=== PATIENT | female | born 1985 | race Caucasian/White ===

== ENCOUNTER 2023-10-25 01:01 | Inpatient (IN) ==
[2023-10-25] MEDS ORDERED: LIDOCAINE 1% LOCAL 20 ML VIAL INFIL PRN (01:44)
--- NOTE | 2023-10-25 01:46 | History & Physical Report ---
Date of Service October 25, 2023 Assessment & Plan (1) Normal labor: Plan patient presents in active labor. admit. fetus category one. desires epidural. then plan arom and anticipate . History of Present Illness Chief Complaint: contractions Primary Care Provider: Rosa Longo MD Patient is a 38yowf with iup at 40 1/7 who presents with painful contractions every 2 minutes. no lof/vb. WAs breech a few weeks ago with a successful version done. and Delivery Plans AMA *Weekly NST's @ 36wks. BREECH at 37 weeks--s/p successful ECV ? VSD on Anatomy * Echo (07/17/23 @ [facility] [place])--normal OB Labs: Blood Type B Positive 10/04/23 Antibody Screen NEGATIVE 10/04/23 Hemoglobin 11.1 g/dl (12.0-16.0) L 10/04/23 Hematocrit 32.2 % (37.0-47.0) L 10/04/23 Mean Corpuscular Volume 90.2 fL (80.0-100.0) 10/04/23 Platelet Count 246 K/uL (130-400) 10/04/23 Rubella IgG Antibody Immune (Immune) 06/06/23 Rapid Plasma Reagin Nonreactive (Nonreactive) 06/06/23 Hepatitis B Surface Antigen. NON-REACTIVE (NON-REACTIVE) 06/06/23 Hepatitis C Antibody (EIA) NON-REACTIVE (NON-REACTIVE) 06/06/23 HIV (1&2) Ag and Ab Confirmation NON-REACTIVE (NON-REACTIVE) 06/06/23 Glucose 1 Hour 50 gm Load 137 mg/dl (70-130) H 08/01/23 OB Optional Labs: Chlamydia trachomatis RNA Not Detected (NotDetected) 06/06/23 Neisseria gonorrhoeae RNA Not Detected (NotDetected) 06/06/23 Labs Reviewed: passed 28 week 2 hr gtt--[facility] [place] from [place]--declined genetics/carrier screening. gbs neg--[facility] Allergies Allergy/AdvReac Type Severity Reaction Status Date / Time No Known Allergies Allergy Verified 10/25/23 01:38 Home Medications Medication Instructions Recorded Confirmed Type prenat.vits,frank,wtm-foge-mioqk 1 tab PO DAILY 05/29/23 10/25/23 History Patient History Medical History (Updated 10/25/23 @ 01:51 by Magda Sullivan MD, FACOG) Breech presentation Family History Brother Diabetes Grandmother (Paternal) Heart disease Other Breast cancer Social History Smoking Status: Former smoker Do You Dip or Chew Tobacco: No; Hx Alcohol Use: No Hx Substance Use: No Preferred Language: Jordanian Communication Ability: Effective Saloonkeeper Required: No Beliefs That Will Affect Care: None marital status: Legally marital status details: Omar (32) [phone] Current Living Situation: Family and Significant Other Current Living Situation Comment: fob mother current occupational status: employed 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 Date GA wks Lbr Lgth wt Sex Type del Anes Place Del Prov ? Comment 03/03/15 41 8lb 4oz M Epidu ral Other [place] [employer] [employer] History noncontributory Physical Exam Constitutional: WD/WN, vitals as above Gastrointestinal (Abdomen): soft, nt, nd, gravid Psychiatric: A+Ox3, euthymic affect Genitourinary: cx--4/100/bulging bag per nursing bsus--cephalic toco--q2-3min efm--125 with mod variability, accels to 160s, no decels Results & Data Vital Signs (Past 12 Hours) Vital Signs Temp Pulse Resp BP 10/25/23 01:28 36.8 C 81 18 127/71 Coding Level of Care Code None Diagnoses Normal labor O80; Z37.9
[2023-10-25] MEDS: LACTATED RINGER'S 1,000 ML IV PRN (01:51)
[2023-10-25 02:04] LABS: Hematocrit (blood only) 35.7 % (37.0-47.0); Hemoglobin 12.5 g/dl (12.0-16.0); Mean Corpuscular Hemoglobin 31.5 pg (25.0-34.0); Mean Corpuscular Volume 89.9 fL (80.0-100.0); Mean Platelet Volume 9.7 fL (9.4-12.4); Platelet Count 252 K/uL (130-400); RDW Coefficient of Variation 12.5 % (11.5-14.5); Red Blood Count 3.97 M/uL (4.20-5.40); White Blood Count 15.04 K/ul (4.8-10.8)
--- NOTE | 2023-10-25 02:09 | Anesthesiology Consultation ---
Date of Service October 25, 2023 Assessment & Plan (1) Encounter for pre-operative examination: Chart Review Chart Review: Acceptable Risk for Labor Epidural History Height/Weight Height: 5 ft 6 in Weight: 83.007 kg Allergies Allergy/AdvReac Type Severity Reaction Status Date / Time No Known Allergies Allergy Verified 10/25/23 01:38 Medications Home Medications Medication Instructions Recorded Confirmed Last Taken prenat.vits,frank,kdq-brtm-ialgw 1 tab PO DAILY 05/29/23 10/25/23 10/24/23 Active Medications Generic Name Dose Route Start Last Admin Trade Name Freq PRN Reason Stop Dose Admin Lactated Ringer's 1,000 mls @ 125 mls/hr 10/25/23 01:44 10/25/23 01:51 Lr IV 10/27/23 01:43 999 mls/hr .Q8H PRN Administration L&D Protocol Protocol Past Medical History Medical History Breech presentation Past Family History Family History Brother Diabetes Grandmother (Paternal) Heart disease Other Breast cancer Past Surgical History history successful external version Social History Smoking Status: Former smoker Do You Dip or Chew Tobacco: No Hx Alcohol Use: No Hx Substance Use: No Physical Exam Vital Signs Last Vital Signs Temp 36.8 C 10/25/23 01:28 Pulse 81 10/25/23 01:28 Resp 18 10/25/23 01:28 BP 127/71 10/25/23 01:28 Testing Laboratory Results 10/25/23 01:51
[2023-10-25] MEDS: fentaNYL citrate PF 100 MCG/2 ML VIAL ONE (02:37)
[2023-10-25] MEDS: BUPIVACAINE 0.25% PF 30 ML VIAL ONE (02:38)
[2023-10-25] MEDS: OXYTOCIN 30 UNITS/NSS 30 UNITS/500 ML BAG IV PRN (02:47)
[2023-10-25] MEDS: fentANYL 2 MCG/ML BUPIVacaine 0.125%-NSS 100ML BAG ONE (02:48)
[2023-10-25] MEDS: ePHEDrine sulfate 50 MG/ML AMP ONE (02:48)
[2023-10-25] MEDS: SODIUM CHLORIDE 0.9% PF INJ 10 ML VIAL ONE (02:49)
[2023-10-25] MEDS: LIDOCAINE 2%/EPINEPHRINE 1:200,000 20 ML PF ONE (02:49)
--- NOTE | 2023-10-25 02:55 | Delivery Summary ---
Vaginal Delivery Summary Date of Service October 25, 2023 Vaginal Delivery Summary Pre-operative Diagnosis: at 40 1/7 labor particulate mec Post-operative Diagnosis: same Procedure: spinal anesthetic srom QBL: 209cc Anesthesia: spinal Procedure: Patient presented in active labor at 4cm. Sat up for epidural with srom for particulate mec. Spinal placed by anesthesia. The patient pushed for two contractions to deliver a viable male infant in leila position. The rest of the was then delivered without difficulty rapidly. The baby was vigorous. The nose and mouth were bulb suctioned and the was placed in the maternal abdomen for drying and attention. Cord was clamped and cut at one minute of life. Cord blood obtained. Placenta delivered spontaneous, intact with a three vessel cord. Cervix/sulci/rectum/perineum were intact. Hemostasis obtained with dilute pitocin and fundal massage. Apgars were pending. Mother and baby doing well at the end of the delivery. [facility] Vaginal Delivery Charge Delivery Type Details: [facility]
[2023-10-25] MEDS ORDERED: HYDROCORTISONE ACETATE 25 MG SUPP PR PRN (04:20)
[2023-10-25] MEDS ORDERED: OXYTOCIN 30 UNITS/NSS 30 UNITS/500 ML BAG IV PRN (04:20)
[2023-10-25] MEDS ORDERED: oxyCODONE/ACETAMINOPHEN 5mg/325mg TAB PO PRN (04:20)
[2023-10-25] MEDS ORDERED: bisacodyL 10 MG SUPP PR PRN (04:20)
[2023-10-25] MEDS ORDERED: ACETAMINOPHEN 325 MG TAB PO PRN (04:20)
[2023-10-25] MEDS: BENZOCAINE 20% SPRY 85 APPLN/85 GM CAN EXT PRN (05:03)
[2023-10-25] MEDS: IBUPROFEN 600 MG TAB PO PRN (08:22)
[2023-10-25] MEDS: PRENATAL VITAMIN 1 TAB PO SCH (08:22)
[2023-10-25] MEDS: DOCUSATE SODIUM 100 MG CAP PO SCH (08:22)
[2023-10-25] MEDS: DIPHTHER/TETAN/PERTUS Vaccine (Tdap, Adol/Adult) 0.5mL IM ONE (08:25)
[2023-10-26 06:12] LABS: Hematocrit (blood only) 31.6 % (37.0-47.0); Hemoglobin 10.9 g/dl (12.0-16.0)
--- NOTE | 2023-10-26 07:39 | Obstetrical Progress Note ---
Date of Service October 26, 2023 Assessment & Plan (1) Supervision of elderly multigravida: PPD#1 doing well, desires DC home. Reviewed instructions, followup 6w PP. Subjective Ambulation: ambulating normally Voiding: no voiding problems Diet Tolerance:: regular diet Lochia:: Moderate Review of Systems All systems reviewed & are unremarkable except as noted in HPI & below Physical Exam Constitutional WD/WN, vitals as above no acute distress Respiratory normal respiratory effort Cardiovascular Rate/Rhythm: regular rate and regular rhythm Gastrointestinal (Abdomen) Inspection/Auscultation: abdomen normal to inspection; abdomen not distended Percussion/Palpation: abdomen soft Genitourinary OB Exam Abdomen: + fundal height Fundus: + firm; not tender Results & Data Vital Signs (Past 12 Hours) Vital Signs Temp Pulse Resp BP Pulse Ox O2 Del Method 10/26/23 03:25 36.5 C 60 18 101/67 98 Room Air 10/26/23 00:00 36.8 C 65 18 97 Room Air
[2023-10-26] MEDS ORDERED: bisacodyL 5 MG TABEC PO SCH (20:00)
== END 2023-10-26 11:00 | disposition home or self-care (01) | DRG 807 ==
LOC: OPB 01:01 → 4S1 01:07 → 4E2 05:24
DX: O42.92 Full-term premature rupture of membranes, unspecified as to length of time between rupture and onset of labor; Z87.891 Personal history of nicotine dependence; O77.0 Labor and delivery complicated by meconium in amniotic fluid; Z3A.40 40 weeks gestation of pregnancy; Z37.0 Single live birth